=== PATIENT | female | born 1990 | race Caucasian/White ===

== ENCOUNTER 2023-07-05 15:16 | Outpatient (CLI) | payer BC, SELFPAY | END 2023-07-05 15:17 | disposition home or self-care (01) | PROVIDERS: Visit Provider Obstetrics & Gynecology | DX: N97.9 Female infertility, unspecified (principal) | CPT/HCPCS: 82670; 83001; 84146 ==

== ENCOUNTER 2023-07-24 15:13 | Outpatient (CLI) | payer BC, SELFPAY | END 2023-07-24 15:14 | disposition home or self-care (01) | LOC: NFLDREF 07-31 00:30 | PROVIDERS: Visit Provider Obstetrics & Gynecology | DX: N97.9 Female infertility, unspecified (principal) | CPT/HCPCS: 84144 ==